=== PATIENT | female | born 1990 | race Caucasian/White ===

== ENCOUNTER 2017-10-29 22:29 | Emergency (ER) | payer MEDICAID, OTHER ==
[~2017-10-29] VITALS: Ht 167.6 cm; Wt 62.0 kg
[2017-10-29 22:57] VITALS: Ht 167.6 cm; Wt 62.0 kg
[2017-10-29] MEDS ORDERED: ONDANSETRON 4 MG INJ IV STA (23:47)
[2017-10-29] MEDS ORDERED: morphine 4 MG/ML VIAL IV STA (23:47)
[2017-10-29] MEDS ORDERED: SOD CHLORIDE 0.9% 1,000 ML IV STA (23:47)
--- NOTE | 2017-10-30 00:28 | ERD ---
ER Documentation Chief Complaint Chief Complaint BIB SELF FOR UTERINE CYST PAIN HPI 26-year-old female presents to emergency department for complaints of left lower pelvic/abdominal pain that started 3 days ago. Patient describes the pain as sharp pain,6/10 scale, as radiating to the left neck area. Patient has history of kidney stones and ovarian cyst. Patient denies any hematuria dysuria. Patient has vomiting. Patient does not have any diarrhea or constipation. Patient denies any sick contacts. Patient denies any fever or chills. ROS All systems reviewed and are negative except as per history of present illness. Medications Home Meds Reported Medications [none] Unknown Strength No Conflict Check 10/30/17 Allergies Allergies: Coded Allergies: No Known Allergy (Unverified , 10/29/17) PMhx/Soc History of Surgery: Yes (deviated septum, tonsils removed) Anesthesia Reaction: No Hx Neurological Disorder: No Hx Respiratory Disorders: No Hx Cardiac Disorders: No Hx Psychiatric Problems: No Hx Miscellaneous Medical Probl: Yes (ovarian cyst) Hx Alcohol Use: Yes (social) Hx Substance Use: No Hx Tobacco Use: No Smoking Status: Never smoker FmHx Family History: No coronary disease, No diabetes, No other Physical Exam Vitals Vital Signs Date Time Temp Pulse Resp B/P Pulse Ox O2 Delivery O2 Flow Rate FiO2 10/29/17 22:57 98.6 119 18 126/80 100 Physical Exam GENERAL: The patient is well developed and appropriate for usual state of health, in no apparent distress. CHEST: Clear to auscultation bilaterally. There are no rales, wheezes or rhonchi. HEART: Regular rate and rhythm. No murmurs, clicks, rubs or gallops. No S3 or S4. ABDOMEN: Soft, nontender and nondistended. Good bowel sounds. No rebound or guarding. No gross peritonitis. No gross organomegaly or masses. No Pope sign or McBurney point tenderness. BACK: No midline or flank tenderness. EXTREMITIES: Equal pulses bilaterally. There is no peripheral clubbing, cyanosis or edema. No focal swelling or erythema. Full range of motion. Grossly neurovascularly intact. NEURO: Alert and oriented. Cranial nerves 2-12 intact. Motor strength in all 4 extremities with 5/5 strength. Sensation grossly intact. Normal speech and gait. SKIN: There is no apparent rash or petechia. The skin is warm and dry. HEMATOLOGIC AND LYMPHATIC: There is no evidence of excessive bruising or lymphedema. No gross cervical, axillary, or inguinal lymphadenopathy. Result Diagram: 10/29/17 0139 10/29/17 0339 Results 24 hrs Laboratory Tests Test 10/29/17 01:39 10/29/17 03:39 10/30/17 01:25 White Blood Count 14.510^3/ul Red Blood Count 4.5410^6/ul Hemoglobin 13.9g/dl Hematocrit 41.2% Mean Corpuscular Volume 90.7fl Mean Corpuscular Hemoglobin 30.6pg Mean Corpuscular Hemoglobin Concent 33.7g/dl Red Cell Distribution Width 12.7% Platelet Count 96608^3/UL Mean Platelet Volume 11.1fl Neutrophils % 90.5% Lymphocytes % 5.2% Monocytes % 3.6% Eosinophils % 0.1% Basophils % 0.1% Nucleated Red Blood Cells % 0.0/100WBC Neutrophils # 13.210^3/ul Lymphocytes # 0.810^3/ul Monocytes # 0.510^3/ul Eosinophils # 0.010^3/ul Basophils # 0.010^3/ul Nucleated Red Blood Cells # 0.010^3/ul Sodium Level 145mmol/L Potassium Level 4.8mmol/L Chloride Level 109mmol/L Carbon Dioxide Level 23mmol/L Anion Gap 18 Blood Urea Nitrogen 8mg/dl Creatinine 0.74mg/dl Glucose Level 106mg/dl Calcium Level 9.3mg/dl Total Bilirubin 1.0mg/dl Direct Bilirubin 0.00mg/dl Indirect Bilirubin 1.0mg/dl Aspartate Amino Transf (AST/SGOT) 42IU/L Alanine Aminotransferase (ALT/SGPT) 37IU/L Alkaline Phosphatase 49IU/L Total Protein 7.2g/dl Albumin 4.3g/dl Globulin 2.90g/dl Albumin/Globulin Ratio 1.48 Lipase 32U/L Urine Color DANK Urine Clarity CLOUDY Urine pH 5.0 Urine Specific [place] 1.025 Urine Ketones 1+mg/dL Urine Nitrite NEGATIVEmg/dL Urine Bilirubin NEGATIVEmg/dL Urine Urobilinogen NEGATIVEmg/dL Urine Leukocyte Esterase TRACELeu/ul Urine Microscopic RBC > 182/HPF Urine Microscopic WBC 17/HPF Urine Squamous Epithelial Cells MANY/HPF Urine Calcium Oxalate Crystals MANY/HPF Urine Bacteria FEW/HPF Urine Mucus MANY/HPF Urine Yeast (Budding) FEW/HPF Urine Hemoglobin 3+mg/dL Urine Glucose NEGATIVEmg/dL Urine Total Protein 2+mg/dl Current Medications Medications (Trade) Dose Ordered Sig/Jennifer Route PRN Reason Start Time Stop Time Status Last Admin Dose Admin Sodium Chloride (NS) 1,000 ml @ 1,000 mls/hr Q1H STAT IV 10/29/17 23:47 10/30/17 00:46 DC 10/30/17 01:53 Morphine Sulfate (morphine) 4 mg ONCE STAT IV 10/29/17 23:47 10/29/17 23:49 DC 10/30/17 02:00 Ondansetron HCl (Zofran Inj) 4 mg ONCE STAT IV 10/29/17 23:47 10/29/17 23:49 DC 10/30/17 02:00 Ketorolac Tromethamine (Toradol) 30 mg ONCE STAT IV 10/30/17 04:43 10/30/17 04:44 DC 10/30/17 04:48 Patient was given medication for pain here in emergency department, after treatment, patient verbalized feeling much better. Patient's pain is improved. Patient was given Zofran here in the emergency department. After treatment, patient was able to tolerate po fluids here in the emergency department without any vomiting. There is no signs and symptoms of dehydration. Normal saline IV bolus was given here in emergency department for rehydration, patient tolerated IV fluids. PROCEDURE: CT Abdomen and Pelvis without contrast. CLINICAL INDICATION: Abdominal pain. TECHNIQUE: Routine tomographic images of the abdomen and pelvis were obtained from the domes of the diaphragm to the symphysis pubis. The patient was scanned withoutoral or intravenous contrast. Coronal and sagittal reformatted images were obtained from the axial source images. Images were reviewed on a high-resolution PACS workstation. The total exam CTDI equals 5.89 mGy and the total exam DLP equals 316.96 mGy-cm. One or more of the following dose reduction techniques were used: Automated exposure control, adjustment of the mA and / or kV according to patient size, or use of iterative reconstruction technique. DICOM images are available. COMPARISON: None. FINDINGS: The visualized portions of the lung bases are clear. Evaluation of the intra -abdominal solid organs is limited on this noncontrast examination. The liver appears normal in size. There is no intra or extrahepatic biliary dilatation. The gallbladder is unremarkable by CT criteria. The spleen, pancreas, and adrenal glands are unremarkable. The kidneys are symmetric in size. There is mild left hydronephrosis. There is a 6 mm calculus at the left UPJ measuring approximately 1100 HU. The left ureter is difficult to visualize. There is a 3 mm calcification along the posterior margin of the bladder near the expected location of the left UVJ. There is a nonobstructing 3 mm calculus within the lower pole right kidney. The urinary bladder is grossly unremarkable. The bowel demonstrates normal course and caliber. There is no evidence of bowel obstruction. The appendix is normal in appearance. No intraperitoneal free fluid, free air or abscess is identified. An IUD is in place. The uterus and adnexa are otherwise unremarkable. The aorta is normal in caliber. No retroperitoneal, mesenteric, or inguinal lymphadenopathy is identified. The osseous structures are unremarkable. No significant subcutaneous soft tissue abnormalities are seen. IMPRESSION: 1. Obstructing 6 mm calculus at the left UPJ with mild left hydronephrosis. The left ureter is not well visualized. There is an additional 3 mm calcification along the posterior margin of the bladder near the expected location of the left UVJ which may reflect an additional left ureteral calculus. 2. Nonobstructing 3 mm calculus within the lower pole of the right kidney. 3. IUD in place. RPTAT: HH .Dari Haji MD, MD Date Time Electronically viewed and signed by .Dari Haji MD, MD on 10/30/2017 05 :15 .G/ CC: MARY BETH PRATHER NP Procedures/MDM Medical Decision Making: Patient symptoms was that is consistent with renal colic. No symptoms of any infected or septic stone. No symptoms of any ovarian torsion. There is low suspicion for abdominal emergencies at this time. Patients abdominal exam is normal at this time. Patients radiology exam does not show any abdominal emergencies at this time. There is low suspicion for appendicitis, cholecystitis, abdominal aortic aneurysms or peritonitis at this time. There is low suspicion for sepsis. Patient appears well and is hemodynamically stable. Disposition: Home. Condition: Stable Prescription, Pyridium Girdler, Zofran, tamsulosin Instructions: Patient is advised to take medications as prescribed. Patient is advised to rest, increase fluid intake and do brat diet for next 1-2 days and progress as tolerated. Patient is advised that if symptoms are worse, severe abdominal pain, uncontrolled vomiting, high fever, severe flank pain, worst signs and symptoms, to return to the emergency department immediately. Otherwise, patient can follow up with primary care doctor in 5-7 days. Disclaimer: Inadvertent spelling and grammatical errors are likely due to EHR/ dictation software use and do not reflect on the overall quality of patient care. Also, please note that the electronic time recorded on this note does not necessarily reflect the actual time of the patient encounter. Departure Diagnosis: Primary Impression: Renal colic Condition: Stable Patient Instructions: Kidney Stone W/ Colic Additional Instructions: Patient is advised to take medications as prescribed. Patient is advised to rest, increase fluid intake and do brat diet for next 1-2 days and progress as tolerated. Patient is advised that if symptoms are worse, severe abdominal pain , uncontrolled vomiting, high fever, severe flank pain, worst signs and symptoms , to return to the emergency department immediately. Otherwise, patient can follow up with primary care doctor in 5-7 days. MARY BETH PRATHER NP Oct 30, 2017 00:28
--- NOTE | 2017-10-30 01:37 | RADRPT ---
PROCEDURE: ULTRASOUND PELVIS CLINICAL INDICATION: 26-year-old female with pelvic pain. TECHNIQUE: Multiple sonographic images of the pelvis were obtained utilizing a transabdominal and endovaginal technique. The images were reviewed on a PACS workstation. COMPARISON: None. FINDINGS: The uterus is visualized and measures 6.5 x 3.4 x 4.6 cm. There is an intrauterine device within the endometrial canal. The endometrial echo complex is within normal limits and measures 5.5 mm. There is mild free fluid within the anterior cul-de-sac and left adnexal region. The right ovary has a nor mal echotexture and measures cm. The left ovary has a normal echotexture and measures 3.1 x 1.4 x 2 .1 2.3 x 1.4 x 1.5 cm. There is flow identified within the ovaries bilaterally. No adnexal masses are noted. IMPRESSION: 1. Intrauterine device. 2. Mild pelvic free fluid. .Paul Melendez MD, MD Date Time Electronically viewed and signed by .Paul Melendez MD, on 10/30/2017 01:37 .M/
[2017-10-30 01:50] LABS: BASOPHILS % 0.1 % (0.0-2.0); EOSINOPHILS % 0.1 % (0.0-7.0); HEMATOCRIT 41.2 % (37.0-47.0); HEMOGLOBIN 13.9 g/dl (12.0-16.0); LYMPHOCYTES # 0.8 10^3/ul (0.8-2.9); LYMPHOCYTES % 5.2 % (15.0-51.0); MEAN CORPUSCULAR HEMOGLOBIN 30.6 pg (29.0-33.0); MEAN CORPUSCULAR HGB CONC 33.7 g/dl (32.0-37.0); MEAN CORPUSCULAR VOLUME 90.7 fl (82.0-101.0); MEAN PLATELET VOLUME 11.1 fl (7.4-10.4); MONOCYTE # 0.5 10^3/ul (0.3-0.9); MONOCYTES % 3.6 % (0.0-11.0); NEUTROPHIL # 13.2 10^3/ul (1.6-7.5); NEUTROPHILS % 90.5 % (39.0-77.0); PLATELET COUNT 226 10^3/UL (140-415); RED BLOOD COUNT 4.54 10^6/ul (4.20-5.40); RED CELL DISTRIBUTION WIDTH 12.7 % (11.5-14.5); WHITE BLOOD COUNT 14.5 10^3/ul (4.8-10.8)
[2017-10-30 02:46] LABS: ADD UMIC YES; UR ASCORBIC ACID 20 mg/dL (NEGATIVE); UR BACTERIA FEW /HPF (NONE SEEN); UR BILIRUBIN (Dip) NEGATIVE (NEGATIVE); UR BLOOD (Dip) 3+ mg/dL (NEGATIVE); UR BUDDING YEAST FEW /HPF (NONE SEEN); UR CLARITY CLOUDY (CLEAR); UR COLOR AMBER (YELLOW); UR GLUCOSE (Dip) NEGATIVE (NEGATIVE); UR KETONES (Dip) 1+ mg/dL (NEGATIVE); UR LEUKOCYTE ESTERASE (Dip) TRACE Leu/ul (NEGATIVE); UR MUCUS MANY /HPF (NONE SEEN); UR NITRITE (Dip) NEGATIVE (NEGATIVE); UR RBC > 182 /HPF (0-5); UR SPECIFIC GRAVITY (Dip) 1.025 (1.003-1.030); UR SQUAMOUS EPITHELIAL CELL MANY /HPF (FEW); UR TOTAL PROTEIN (Dip) 2+ mg/dl (NEGATIVE); UR UROBILINOGEN (Dip) NEGATIVE (NEGATIVE)
[2017-10-30 04:09] LABS: ALBUMIN 4.3 g/dl (3.3-4.9); ALBUMIN/GLOBULIN RATIO 1.48; CALCIUM 9.3 mg/dl (8.4-10.2); CREATININE 0.74 mg/dl (0.44-1.00); POTASSIUM 4.8 mmol/L (3.5-5.1); TOTAL PROTEIN 7.2 g/dl (6.1-8.1)
[2017-10-30] MEDS ORDERED: KETOROLAC 30 MG INJ IV STA (04:43)
--- NOTE | 2017-10-30 05:15 | RADRPT ---
PROCEDURE: CT Abdomen and Pelvis without contrast. CLINICAL INDICATION: Abdominal pain. TECHNIQUE: Routine tomographic images of the abdomen and pelvis were obtained from the domes of th e diaphragm to the symphysis pubis. The patient was scanned withoutoral or intravenous contrast. C oronal and sagittal reformatted images were obtained from the axial source images. Images were revie wed on a high-resolution PACS workstation. The total exam CTDI equals 5.89 mGy and the total exam DL P equals 316.96 mGy-cm. One or more of the following dose reduction techniques were used: Automate d exposure control, adjustment of the mA and / or kV according to patient size, or use of iterative reconstruction technique. DICOM images are available. COMPARISON: None. FINDINGS: The visualized portions of the lung bases are clear. Evaluation of the intra-abdominal solid org ans is limited on this noncontrast examination. The liver appears normal in size. There is no intr a or extrahepatic biliary dilatation. The gallbladder is unremarkable by CT criteria. The spleen, pancreas, and adrenal glands are unremarkable. The kidneys are symmetric in size. There is mild left hydronephrosis. There is a 6 mm calculus at t he left UPJ measuring approximately 1100 HU. The left ureter is difficult to visualize. There is a 3 mm calcification along the posterior margin of the bladder near the expected location of the left U VJ. There is a nonobstructing 3 mm calculus within the lower pole right kidney. The urinary bladder is grossly unremarkable. The bowel demonstrates normal course and caliber. There is no evidence of bowel obstruction. The appendix is normal in appearance. No intraperitoneal free fluid, free air or abscess is identified. An IUD is in place. The uterus and adnexa are otherwise unremarkable. The aorta is normal in calib er. No retroperitoneal, mesenteric, or inguinal lymphadenopathy is identified. The osseous structures are unremarkable. No significant subcutaneous soft tissue abnormalities are seen. IMPRESSION: 1. Obstructing 6 mm calculus at the left UPJ with mild left hydronephrosis. The left ureter is not well visualized. There is an additional 3 mm calcification along the posterior margin of the bladder near the expected location of the left UVJ which may reflect an additional left ureteral calculus. 2. Nonobstructing 3 mm calculus within the lower pole of the right kidney. 3. IUD in place. RPTAT: HH .Dari Haji MD, MD Date Time Electronically viewed and signed by .Dari Haji MD, MD on 10/30/2017 05:15 .G/
[2017-10-30] MEDS ORDERED: TAMS-14 PO (05:20)
[2017-10-30] MEDS ORDERED: PHEN-538 PO (05:20)
[2017-10-30] MEDS ORDERED: ONDA4TAB14 PO (05:20)
[2017-10-30] MEDS ORDERED: HYDR-906 PO (05:20)
[2017-10-30 05:34] VITALS: BP 113/69; PULSE 71; RESP 20; TEMP 98
== END 2017-10-30 05:35 | disposition home or self-care (01) ==
LOC: FTE 22:29
DX: N23 Unspecified renal colic (principal)
CPT/HCPCS: 36415; 74176; 76830; 76856; 80053; 81001; 83690; 85025; 96374; 96375; J1885; J2270; J2405; J7030; Z7502